=== PATIENT | female | born 1985 | race Hispanic/Latino ===

== ENCOUNTER 2016-02-13 19:06 | Emergency (ER) | payer OTHER ==
[~2016-02-13] VITALS: Ht 167.6 cm; Wt 85.6 kg
[~2016-02-13 19:06] MED LIST: FLEXERIL5 MG PO; METHERGINE0.2 MG PO; Motrin PO; NAPROSYN500 MG PO; NAPROXEN500 MG PO; PEPCID20 MG PO; PREDNISONE20 MG PO; PRENATAL VITAM1 EAC3 PO; ULTRAM50 MG PO
[2016-02-13 20:29] LABS: HEMATOCRIT 36.6 % (36.0-46.0); MCH 27.4 PG (29.0-34.0); MCHC 33.1 G/DL (30.0-36.0); MEAN PLAT.VOLUME 11.1 uM^3 (9.5-12.4); PLATELET COUNT 288 K/uL (156-360); RBC DIS.WIDTH-CV 17.7 % (11.8-14.6); RBC DIS.WIDTH-SD 52.3 % (39-53); RED BLOOD COUNT 4.41 M/uL (3.80-5.20)
[2016-02-14 01:34] VITALS: BP 123/78
[2016-02-14 03:30] LABS: ADD MIUA? YES; BILIRUBIN NEGATIVE; BLOOD SMALL; COLOR YELLOW ((YELLOW)); GLUCOSE (STRIP) NEGATIVE; KETONES NEGATIVE; LEUKOCYTES NEGATIVE; NITRITE NEGATIVE; PROTEIN (STRIP) NEGATIVE; SPECIFIC GRAVITY 1.016 (1.000-1.030); UROBILINOGEN 0.2 MG/DL (0.2-1.0)
[2016-02-14 03:48] LABS: CASTS NONE SEEN /LPF; EPITHELIAL CELLS 1+; MUCUS NONE SEEN
[2016-02-14 03:49] LABS: BACTERIA NONE SEEN; CRYSTALS NONE SEEN; RED BLOOD CELLS NONE SEEN /HPF (0-5); UCUL ADDED? NO; WHITE BLOOD CELLS NONE SEEN /HPF (0-5)
== END 2016-02-14 01:42 | disposition home or self-care (01) ==
LOC: RME 19:06 → EME 19:06 → RME 02-14 01:42
DX: O20.9 Hemorrhage in early pregnancy, unspecified (principal); Z3A.12 12 weeks gestation of pregnancy
CPT/HCPCS: 76801; 81003; 84702; 85027; 99281; 99284